=== PATIENT | female | born 1995 | race Caucasian/White ===

== ENCOUNTER 2017-06-07 05:04 | Emergency (ER) | payer SELFPAY ==
[2017-06-07 05:25] VITALS: BMI 45.1
[2017-06-07] MEDS ORDERED: NS 1000 ML 1,000 ML ONE (05:26)
--- NOTE | 2017-06-07 05:43 | DR.GENAD ---
HPI - PCP Primary Care Physician: ANA LUISA - HPI Comment HPI Comment: 22YR OLD WHITE FEMALE, PRESENT WITH BELOW CHIEF COMPLAINT. PATIENT IS 27WEEKS 6DAYS . HER AMNIOTIC FLUID HAS BEING LEAKING SINCE 18WEEKS OF HER . WAS IN [facility] FOR 4 WEEKS HOSPITALIZE. SIGN OUT AMA THIS PAST SUNDAY TO COME TO [place] AND ARRANGE FOR HER SON TO STAY WITH RELATIVES. WHILE HERE, HER BLEEDING GOT WORSE. SHE CAME TO ED . NO FEVER OR DYSURIA. - Complaint/Symptoms Chief Complaint Doctors Comments: ABDOMINAL PAIN, VAGINAL PAIN. Chief Complaint:: PT SIGNED OUT OF HOSPITAL IN [place] ON SUNDAY PT WAS TO STAY THERE UNTIL WAS 34 WEEKS PT UNABLE TO PT HAS EXTENSIVE HX ROM AT 18 WEEKS - Nurses notes reviewed Nurses Notes Review: Yes - Source History Provided: Patient - Mode of Arrival Mode of Arrival: Wheelchair - Timing Onset of Chief Complaint: 06/07/17 Came on: Suddenly - Duration Duration: Intermittent Duration: Weeks - Severity Severity: Moderate PMH - PMH Past Medical History: No Past Surgical History: Yes Surgical History: - Family History History of Family Medical Conditions: No - Social History Does any household member use tobacco: No Alcohol Use: None Do you use any recreational Drugs:: No Lives With: Family Lives Where: Home - infectious screening In the last 2 months have you had wt loss of >10#?: NO Have you had fever, night sweats or hemotysis?: No Have you traveled outside the country in the last 6 months?: No Isolation: Standard ROS - Review of Systems Constitutional: No Symptoms Reported Eyes: No Symptoms Reported ENTM: No Symptoms Reported Respiratoy: No Symptoms Reported Cardiovascular: No Symptoms Reported. negative: Edema Gastrointestinal/Abdominal: Abdominal Pain Genitourinary: Bleeding (VAGINAL BLEEDING.) Neurological: Dizziness Musculoskeletal: No Symptoms Reported Integumentary: No Symptoms Reported Hematologic/Lymphatic: No Symptoms Reported Endocrine: No Symptoms Reported All Other Systems: Reviewed and Negative PE - Vital Signs Vitals: Temperature 98.6 F Pulse Rate [Left Brachial] 89 Pulse Rate 95 Respiratory Rate 18 Blood Pressure [Left Arm] 108/78 Blood Pressure 125/62 O2 Sat by Pulse Oximetry 99 - General Limitations: No Limitations General Appearance: Alert - Head Head Exam: Normal Inspection - Eyes Eye exam: Normal Appearance - ENT ENT Exam: Normal External Ear Exam External Ear Exam: Normal External Inspection TM/Canal Exam: Bilateral Normal Nose Exam: Normal Nose Exam Mouth Exam: Normal Inspection Throat Exam: Normal Inspection - Neck Neck Exam: Trachea Midline - Chest Chest Inspection: Symmetric Chest Wall Rise - Respiratory Respiratory Exam: Normal Lung Sounds Bilat Respiratory Exam: Bilateral Clear to Auscultation - Cardiovascular Cardiovascular Exam: Regular Rate, Normal Rhythm, Normal Heart Sounds - Abdominal Exam Abdominal Exam: Normal Bowel Sounds, Soft, Tenderness Abdominal Tenderness: Diffuse, Moderate - Extremities Extremities Exam: Normal Inspection. negative: Edema - Back Back Exam: Normal Inspection - Neurologic Neurological Exam: Alert, Oriented X3, CN II-XII Intact. negative: Motor Sensory Deficit - Psychiatric Psychiatric Exam: Normal Affect, Normal Mood - Skin Skin Exam: Normal Color MDM - Additional Information Additional Information Obtained From: Family - Differential Diagnosis Differential Diagnosis: PREMATURE RUPTURE OF MEMBRANE AT 18WEEKS, PREMATURE LABOR, VAGINAL BLEEDING Course - Treatment Treatment: SEE ORDERS. - Consultation Consultation Comments: DISCUSS PATIENT WITH DR. ROCHE, [facility]. SHE ACCEPTED PATIENT FOR TRANSFER. - Education/Counseling Education/Counseling: Patient, Family, Education Educated On: Diagnosis ROR - Labs Reviewed Laboratory Results Reviewed?: Yes Result Diagrams: 06/07/17 05:25 06/07/17 05:25 Laboratory: WBC 8.6 X10^3/uL (3.6-10.0) 06/07/17 05:25 RBC 4.99 X10^6/uL (3.5-5.4) 06/07/17 05:25 Hgb 12.1 g/dL (12.0-16.0) 06/07/17 05:25 Hct 35.9 % (36.0-47.0) L 06/07/17 05:25 MCV 71.9 fL (80.0-100.0) L 06/07/17 05:25 MCH 24.3 pg (27.0-34.0) L 06/07/17 05:25 MCHC 33.8 g/dL (33.0-35.0) 06/07/17 05:25 RDW 14.3 % (11.6-16.5) 06/07/17 05:25 Plt Count 231 X10^3/uL (150.0-450.0) 06/07/17 05:25 Plt Count Comment Adequate (ADEQUATE) 06/07/17 05:25 MPV 8.9 fL (7.4-11.0) 06/07/17 05:25 Neut % 69.0 % (42.0-75.0) 06/07/17 05:25 Lymph % 21.3 % (21.0-51.0) 06/07/17 05:25 [place] % 7.4 % (0.0-13.0) 06/07/17 05:25 Eos % 1.6 % (0.9-2.9) 06/07/17 05:25 Baso % 0.7 % (0.2-1.0) 06/07/17 05:25 Neut # 6.0 x10^3/uL (2.2-4.8) H 06/07/17 05:25 Lymph # 1.8 X10^3/uL (1.3-2.9) 06/07/17 05:25 [place] # 0.6 x10^3/uL (0.3-0.8) 06/07/17 05:25 Eos # 0.1 x10^3/uL (0.0-0.2) 06/07/17 05:25 Baso # 0.1 X10^3/uL (0.0-0.1) 06/07/17 05:25 Absolute Nucleated RBC 0.1 /100WBC 06/07/17 05:25 Plt Morphology Comment Normal (NORMAL) 06/07/17 05:25 RBC Morphology Abnormal (NORMAL) A 06/07/17 05:25 Microcytosis Slight A 06/07/17 05:25 Sodium 138 mmol/L (136-145) 06/07/17 05:25 Corrected Sodium TNP 06/07/17 05:25 Potassium 3.6 mmol/L (3.5-5.1) 06/07/17 05:25 Chloride 104 mmol/L (98-107) 06/07/17 05:25 Carbon Dioxide 19.7 mmol/L (21-32) L 06/07/17 05:25 BUN 9 mg/dL (7-18) 06/07/17 05:25 Creatinine 0.67 mg/dL (0.55-1.02) 06/07/17 05:25 Est GFR (MDRD) Af Amer > 60 (>60) 06/07/17 05:25 Est GFR (MDRD) Non-Af > 60 (>60) 06/07/17 05:25 Glucose 80 mg/dL (65-99) 06/07/17 05:25 Calcium 8.6 mg/dL (8.5-10.1) 06/07/17 05:25 Specimen Type Clean catch urine 06/07/17 05:53 Urine Color Bloody (YELLOW) 06/07/17 05:53 Urine Appearance Cloudy (CLEAR) 06/07/17 05:53 Urine pH 5.0 (5.0 - 8.0) 06/07/17 05:53 Ur Specific [place] 1.020 (1.000-1.030) 06/07/17 05:53 Urine Protein 4+ (NEGATIVE) 06/07/17 05:53 Urine Glucose (UA) Negative (NEGATIVE) 06/07/17 05:53 Urine Ketones 1+ (NEGATIVE) 06/07/17 05:53 Urine Occult Blood 4+ (NEGATIVE) 06/07/17 05:53 Urine Nitrite Negative (NEGATIVE) 06/07/17 05:53 Urine Bilirubin Negative (NEGATIVE) 06/07/17 05:53 Urine Urobilinogen Normal (NORMAL) 06/07/17 05:53 Ur Leukocyte Esterase Negative (NEGATIVE) 06/07/17 05:53 Urinalysis Comment QNS 06/07/17 05:53 RPR Nonreactive (NONREACTIVE) 06/07/17 05:25 Blood Type B POSITIVE 06/07/17 05:25 Antibody Screen Negative 06/07/17 05:25 - XRAY XRAY Interpreted by: Radiologist XRAY Findings: REPORT NOTED - Diagnosis Discharge Problem: Spontaneous rupture of amniotic membranes, Vaginal bleeding in labor Qualifiers: labor trimester: second trimester labor delivery status: without delivery Qualified Code(s): O60.02 - labor without delivery, second trimester Ruptured, membranes, premature Qualifiers: PROM onset of labor timing: onset of labor more than 24 hours following rupture PROM gestational age: -second trimester Qualified Code(s): O42.112 - premature rupture of membranes, onset of labor more than 24 hours following rupture, second trimester - Discharge Plan Condition: Stable - Follow ups/Referrals Follow ups/Referrals: NFD,None [Primary Care Provider] - 3 days - Instructions
[2017-06-07 06:01] LABS: BASOPHILS # (AUTO) 0.1 X10^3/uL (0.0-0.1); BASOPHILS % (AUTO) 0.7 % (0.2-1.0); EOSINOPHILS # (AUTO) 0.1 x10^3/uL (0.0-0.2); EOSINOPHILS % (AUTO) 1.6 % (0.9-2.9); HEMATOCRIT 35.9 % (36.0-47.0); HEMOGLOBIN 12.1 g/dL (12.0-16.0); LYMPHOCYTES # (AUTO) 1.8 X10^3/uL (1.3-2.9); LYMPHOCYTES % (AUTO) 21.3 % (21.0-51.0); MEAN CORPUSCULAR HEMOGLOBIN 24.3 pg (27.0-34.0); MEAN CORPUSCULAR HGB CONC 33.8 g/dL (33.0-35.0); MEAN CORPUSCULAR VOLUME 71.9 fL (80.0-100.0); MEAN PLATELET VOLUME 8.9 fL (7.4-11.0); MONOCYTES # (AUTO) 0.6 x10^3/uL (0.3-0.8); MONOCYTES % (AUTO) 7.4 % (0.0-13.0); PLATELET COUNT 231 X10^3/uL (150.0-450.0); RED BLOOD COUNT 4.99 X10^6/uL (3.5-5.4); RED CELL DISTRIBUTION WIDTH 14.3 % (11.6-16.5); WHITE BLOOD COUNT 8.6 X10^3/uL (3.6-10.0)
[2017-06-07 06:02] LABS: BILIRUBIN,URINE NEGATIVE (NEGATIVE); BLOOD/HEMOGLOBIN,URINE 4+ (NEGATIVE); GLUCOSE, URINE NEGATIVE (NEGATIVE); KETONES,URINE 1+ (NEGATIVE); LEUKOCYTE ESTERASE ,URINE NEGATIVE (NEGATIVE); NITRITES,URINE NEGATIVE (NEGATIVE); PROTEIN,URINE 4+ (NEGATIVE); UROBILINOGEN,URINE NORMAL (NORMAL)
[2017-06-07 06:04] LABS: BLOOD UREA NITROGEN 9 mg/dL (7-18); CALCIUM 8.6 mg/dL (8.5-10.1); CARBON DIOXIDE 19.7 mmol/L (21-32); CHLORIDE 104 mmol/L (98-107); CREATININE 0.67 mg/dL (0.55-1.02); SODIUM 138 mmol/L (136-145); eGFR BLACK RACES > 60 (>60); eGFR NON BLACK RACES > 60 (>60)
[2017-06-07 06:07] LABS: APPEARANCE,URINE CLOUDY (CLEAR); COLOR,URINE BLOODY (YELLOW)
[2017-06-07 06:18] LABS: MICROCYTOSIS SLIGHT; PLATELET MORPHOLOGY COMMENT NORMAL (NORMAL)
--- NOTE | 2017-06-07 06:43 | US ---
History: with vaginal bleeding and history of ruptured membranes Study: Obstetrical ultrasound Comparison: None Findings: There is a single intrauterine in a cephalic presentation with a heart rate of 13 2 beats per minute. There is a posterior fundal grade 2 placenta. No amniotic fluid is demonstrated. The prior parietal diameter measures 7.07 cm corresponding to a 28 week 3 day age . The head circumfe rence measures 25.73 cm corresponding to a 28 week age. , The abdominal circumference measures 21.51 cm corresponding to 26 weeks. The femur length measures 5.04 cm corresponding to 27 weeks. Estimated weight is 972 g, 16th percentage growth profile. Impression: 1. No amniotic fluid detected. 2. Viable intrauterine with a heart rate of 132 beats per minute. Reported By:
[2017-06-07 08:21] VITALS: BP 115/58
== END 2017-06-07 08:14 | disposition short-term general hospital (02) ==
LOC: ER 05:04
DX: O60.02 Preterm labor without delivery, second trimester (principal); O42.112 Preterm premature rupture of membranes, onset of labor more than 24 hours following rupture, second trimester; O46.90 Antepartum hemorrhage, unspecified, unspecified trimester; Z3A.26 26 weeks gestation of pregnancy
CPT/HCPCS: 36415; 76815; 80048; 81003; 85025; 86592; 86850; 86900; 86901; 96365; 96375; 99285; A4222